=== PATIENT | female | born 1935 | race Caucasian/White ===

== ENCOUNTER 2016-12-04 16:35 | Emergency (ER) | payer MEDICARE, OTHER | END 2016-12-04 20:00 | disposition home or self-care (01) | LOC: D.ER 16:35 | DX: S01.81XA Laceration without foreign body of other part of head, initial encounter (principal); W19.XXXA Unspecified fall, initial encounter; Y93.89 Activity, other specified; Y92.512 Supermarket, store or market as the place of occurrence of the external cause ==

== ENCOUNTER 2017-11-15 16:01 | Emergency (ER) | payer MEDICARE, OTHER | END 2017-11-15 17:12 | disposition home or self-care (01) | LOC: D.ER 16:01 | DX: Z76.0 Encounter for issue of repeat prescription (principal) ==

== ENCOUNTER 2017-11-20 13:33 | Emergency (ER) | payer MEDICARE, OTHER | END 2017-11-20 15:46 | disposition home or self-care (01) | LOC: D.ER 13:33 | DX: S00.81XA Abrasion of other part of head, initial encounter (principal); W19.XXXA Unspecified fall, initial encounter; Y93.89 Activity, other specified; Y92.230 Patient room in hospital as the place of occurrence of the external cause; S00.83XA Contusion of other part of head, initial encounter; S61.412A Laceration without foreign body of left hand, initial encounter ==

== ENCOUNTER 2018-06-14 10:37 | Inpatient (IN) | payer MEDICARE ==
[~2018-06-14] VITALS: Ht 165.1 cm; Wt 41.5 kg
--- NOTE | ~2018-06-14 | MORECARE ---
CASE MANAGEMENT DISCHARGE SUMMARY PATIENT: MARLEN TOTH UNIT: [id number] ADM DATE: 06/14/18 AGE: 83 : 34 SEX: F ROOM/BED: D.1211 AUTHOR: LADAN TATE PHYSICIAN: REFERRING PHYSICIAN: CECIL BAKER MD DATE OF SERVICE: 06/14/18 Discharge Plan Patient Name: MARLEN TOTH [facility] [facility] 1935 Planned Disposition: Anticipated Discharge Date: 06/16/18 Discharge Date: Expected LOS: 2 Initial Reviewer: [email or web address] Initial Review Date: 06/14/2018 Generated: 06/14/18 3:39 pm DCPIA - Discharge Planning Initial Assessment Updated by [email or web address]: Sandrine Mahoney on 06/14/18 2:36 pm * Is the patient Alert and Oriented? Yes * How many steps to enter\exit or inside your home? * PCP [facility] * Pharmacy [facility] * Preadmission Environment Home with Family * ADLs Independent * Equipment Bedside Commode Cane Walker * List name and contact numbers for known caregivers / representatives who currently or will assist patient after discharge: TANVI TOTH, DAUGHTER, * Verbal permission to speak to the caregivers and representatives has been obtained from the patient. Yes * Community resources currently utilized Meals on Wheels * Please name any agencies selected above. STATES A CAREGIVER COMES 3 DAYS A WEEK BUT SHE DOESN'T KNOW THROUGH WHAT AGENCY. STATES WHEN DAUGHTER GETS HERE SHE WILL KNOW. * Can the patient safely return to the preadmission environment? Yes * Has this patient been hospitalized within the prior 30 days at any hospital? No Patient Name: MARLEN TOTH Page [id number] at 1439 All edits/amendments must be made on the electronic document DICTATION DATE: 06/14/181437 BUS AND TROLLEY DISPATCHER: CATHERINE 06/14/181437 RPT#: [id number] DC DATE: STATUS: ADM IN [facility] [address] [place] [address] END OF REPORT
--- NOTE | ~2018-06-14 | MORECARE ---
CASE MANAGEMENT DISCHARGE SUMMARY PATIENT: MARLEN TOTH UNIT: [id number] ADM DATE: 06/14/18 AGE: 83 : 34 SEX: F ROOM/BED: D.1211 AUTHOR: LADAN TATE PHYSICIAN: REFERRING PHYSICIAN: CECIL BAKER MD DATE OF SERVICE: 06/14/18 Discharge Plan Patient Name: MARLEN TOTH Facility: [facility]:[place] : 1935 Planned Disposition: Anticipated Discharge Date: 06/16/18 Discharge Date: Expected LOS: 2 Initial Reviewer: [email or web address] Initial Review Date: 06/14/2018 Generated: 06/14/18 3:49 pm Comments DCP- Discharge Planning Updated by [email or web address]: Sandrine Mahoney on 06/14/18 1:[address] Patient Name: MARLEN TOTH Admission Status: ER Accout number: [id number] Admission Date: 06-14-2018 : 1935 Admission Diagnosis: Attending: CECIL BAKER Current LOS: 1 Anticipated DC Date: 06-16-2018 Planned Disposition: Primary Insurance: [facility] MEDICARE SOLUTIONS Discharge Planning Comments: CM MET WITH PATIENT AND HER SON JOSH. SHE STATES HER SONS COME AND STAY WITH HER AT NIGHT AND SHE HAS A CAREGIVER THAT COMES TO HER HOUSE 3 DAYS A WEEK. SHE DOESN'T KNOW THE NAME OF THE AGENCY BUT STATES HER DAUGHTER IN LAW, TANVI, SHOULD WHEN SHE GETS HERE. STATES HOME ENVIRONMENT IS SAFE. STATES SHE WAS FINE UNTIL SHE WAS MOPPING AND WAXING HER FLOORS AND THEN SHE BECAME SICK. PATIENT IS INDEPENDANT WITH ADL'S. HAS CANE AND WALKER NEEDED. CM WILL FOLLOW AND ASSIST NEEDED WITH DC PLANNING/NEEDS. Foreign Languages Department Chair: Sandrine Mahoney DCPIA - Discharge Planning Initial Assessment Updated by [email or web address]: Sandrine Mahoney on 06/14/18 2:36 pm * Is the patient Alert and Oriented? Yes * How many steps to enter\exit or inside your home? * PCP [facility] * Pharmacy [facility] * Preadmission Environment Home with Family * ADLs Independent * Equipment Bedside Commode Cane Walker * List name and contact numbers for known caregivers / representatives who currently or will assist patient after discharge: TANVI TOTH, DAUGHTER, * Verbal permission to speak to the caregivers and representatives has been obtained from the patient. Yes * Community resources currently utilized Meals on Wheels * Please name any agencies selected above. STATES A CAREGIVER COMES 3 DAYS A WEEK BUT SHE DOESN'T KNOW THROUGH WHAT AGENCY. STATES WHEN DAUGHTER GETS HERE SHE WILL KNOW. * Can the patient safely return to the preadmission environment? Yes * Has this patient been hospitalized within the prior 30 days at any hospital? No Last DP export: 06/14/18 1:39 Patient Name: MARLEN OTTH Page [id number] at 1449 All edits/amendments must be made on the electronic document DICTATION DATE: 06/14/181448 SCRAPER HAND: CATHERINE 06/14/181448 RPT#: [id number] [place] DATE: STATUS: ADM IN [facility] [address] [place] [address] END OF REPORT
--- NOTE | ~2018-06-14 | MORECARE ---
CASE MANAGEMENT DISCHARGE SUMMARY PATIENT: MARLEN WELLINGTON UNIT: [id number] ADM DATE: 06/14/18 AGE: 83 : 34 SEX: F ROOM/BED: D.1211 AUTHOR: LADAN TATE PHYSICIAN: REFERRING PHYSICIAN: CECIL BAKER MD DATE OF SERVICE: 06/22/18 Discharge Plan Patient Name: MARLEN WELLINGTON [facility]:[place] : 1935 Planned Disposition: Anticipated Discharge Date: 06/16/18 Discharge Date: 06/22/2018 Expected LOS: 2 Initial Reviewer: [email or web address] Initial Review Date: 06/14/2018 Generated: 06/22/18 5:01 pm Comments DCP- Discharge Planning Updated by [email or web address]: Rianna Hinds on 06/22/18 2:[address] LATE ENTRY 06/22/18 @ 1040 CM called and spoke with Tanvi Wellington patients [id number] regarding discharge planning. Pat states that they plan on the patient coming back to her home. Pat states that she has 24 hr. care. She has a caregiver in the day hours and family is with her evening and night. CM called and spoke with nursing regarding plan for discharge. IMM explained and served 06/22/18 @ 1121. CM will continue to follow and assist as needed with discharge planning / needs. DCP- Discharge Planning Updated by [email or web address]: Rianna Hinds on 06/18/18 3:[address] CM WAS NOTIFIED THAT D/C PLAN FOR TODAY WAS CANCELED DUE TO MENTAL STATUS CHANGE. TORIBIO WITH INPATIENT REHAB NOTIFIED CM THAT PATIENT DIDN'T QUALIFY FOR INPATIENT REHAB. CM WILL CONTINUE TO FOLLOW AND ASSIST NEEDED WITH DISCHARGE PLANNING NEEDS. DCP- Discharge Planning Updated by [id number]: Sandrine Mahoney on 06/14/18 1:[address] Patient Name: MARLEN WELLINGTON Admission Status: ER Accout number: [id number] Admission Date: 06-14-2018 : 1935 Admission Diagnosis: Attending: CECIL BAKER Current LOS: 1 Anticipated DC Date: 06-16-2018 Planned Disposition: Primary Insurance: [facility] MEDICARE SOLUTIONS Discharge Planning Comments: CM MET WITH PATIENT AND HER SON JOSH. SHE STATES HER SONS COME AND STAY WITH HER AT NIGHT AND SHE HAS A CAREGIVER THAT COMES TO HER HOUSE 3 DAYS A WEEK. SHE DOESN'T KNOW THE NAME OF THE AGENCY BUT STATES HER DAUGHTER IN LAW, TANVI, SHOULD WHEN SHE GETS HERE. STATES HOME ENVIRONMENT IS SAFE. STATES SHE WAS FINE UNTIL SHE WAS MOPPING AND WAXING HER FLOORS AND THEN SHE BECAME SICK. PATIENT IS INDEPENDANT WITH ADL'S. HAS CANE AND WALKER NEEDED. CM WILL FOLLOW AND ASSIST NEEDED WITH DC PLANNING/NEEDS. Model Maker Plaster: Sandrine Mahoney DCPIA - Discharge Planning Initial Assessment Updated by [id number]: Sandrine Mahoney on 06/14/18 2:36 pm * Is the patient Alert and Oriented? Yes * How many steps to enter\exit or inside your home? * PCP [facility] * Pharmacy [facility] * Preadmission Environment Home with Family * ADLs Independent * Equipment Bedside Commode Cane Walker * List name and contact numbers for known caregivers / representatives who currently or will assist patient after discharge: TANVI WELLINGTON, DAUGHTER, * Verbal permission to speak to the caregivers and representatives has been obtained from the patient. Yes * Community resources currently utilized Meals on Wheels * Please name any agencies selected above. STATES A CAREGIVER COMES 3 DAYS A WEEK BUT SHE DOESN'T KNOW THROUGH WHAT AGENCY. STATES WHEN DAUGHTER GETS HERE SHE WILL KNOW. * Can the patient safely return to the preadmission environment? Yes * Has this patient been hospitalized within the prior 30 days at any hospital? No Coverage Notice Reviewer: [id number] Koko Hinds Notice Issued Date-Time: 06/22/2018 15:50 Notice Type: IM Discharge Notice Notice Delivered To: Patient Relationship to Patient: Self Lei Maker Name: Delivery Method: HAND - Hand Delivered [place] Days: Prior Verbal Notification: Recipient Understood Notice: Yes Recipient Signature: Yes Med Rec Note Co-signed by Attending: Coverage Notice Comment: Last DP export: 06/18/18 3:29 Patient Name: MARLEN WELLINGTON Page [phone] at 1601 All edits/amendments must be made on the electronic document DICTATION DATE: 06/22/18 1601 PRODUCT TEST SPECIALIST: CATHERINE 06/22/18 1601 RPT#: [id number] DC DATE:06/22/18 STATUS: DIS IN [facility] [address] [facility] [facility] [address] END OF REPORT
--- NOTE | ~2018-06-14 | MORECARE ---
CASE MANAGEMENT DISCHARGE SUMMARY PATIENT: MARLEN TOTH UNIT: [id number] ADM DATE: 06/14/18 AGE: 83 : 34 SEX: F ROOM/BED: D.1211 AUTHOR: LADAN TATE PHYSICIAN: REFERRING PHYSICIAN: CECIL BAKER MD DATE OF SERVICE: 06/18/18 Discharge Plan Patient Name: MARLEN TOTH Facility: [facility]:[place] : 1935 Planned Disposition: Anticipated Discharge Date: 06/16/18 Discharge Date: Expected LOS: 2 Initial Reviewer: [email or web address] Initial Review Date: 06/14/2018 Generated: 06/18/18 5:29 pm Comments DCP- Discharge Planning Updated by [email or web address]: Rianna Hinds on 06/18/18 3:[address] CM WAS NOTIFIED THAT D/C PLAN FOR TODAY WAS CANCELED DUE TO MENTAL STATUS CHANGE. TORIBIO WITH INPATIENT REHAB NOTIFIED CM THAT PATIENT DIDN'T QUALIFY FOR INPATIENT REHAB. CM WILL CONTINUE TO FOLLOW AND ASSIST NEEDED WITH DISCHARGE PLANNING NEEDS. DCP- Discharge Planning Updated by [id number]: Sandrine Mahoney on 06/14/18 1:[address] Patient Name: MARLEN TOTH Admission Status: ER Accout number: [id number] Admission Date: 06-14-2018 : 1935 Admission Diagnosis: Attending: CECIL BAKER Current LOS: 1 Anticipated DC Date: 06-16-2018 Planned Disposition: Primary Insurance: [facility] MEDICARE SOLUTIONS Discharge Planning Comments: CM MET WITH PATIENT AND HER SON JOSH. SHE STATES HER SONS COME AND STAY WITH HER AT NIGHT AND SHE HAS A CAREGIVER THAT COMES TO HER HOUSE 3 DAYS A WEEK. SHE DOESN'T KNOW THE NAME OF THE AGENCY BUT STATES HER DAUGHTER IN LAW, PAT, SHOULD WHEN SHE GETS HERE. STATES HOME ENVIRONMENT IS SAFE. STATES SHE WAS FINE UNTIL SHE WAS MOPPING AND WAXING HER FLOORS AND THEN SHE BECAME SICK. PATIENT IS INDEPENDANT WITH ADL'S. HAS CANE AND WALKER NEEDED. CM WILL FOLLOW AND ASSIST NEEDED WITH DC PLANNING/NEEDS. Web Designer: Sandrine Mahoney DCPIA - Discharge Planning Initial Assessment Updated by [email or web address]: Sandrine Mahoney on 06/14/18 2:36 pm * Is the patient Alert and Oriented? Yes * How many steps to enter\exit or inside your home? * PCP [facility] * Pharmacy [facility] * Preadmission Environment Home with Family * ADLs Independent * Equipment Bedside Commode Cane Walker * List name and contact numbers for known caregivers / representatives who currently or will assist patient after discharge: TANVI TOTH, DAUGHTER, * Verbal permission to speak to the caregivers and representatives has been obtained from the patient. Yes * Community resources currently utilized Meals on Wheels * Please name any agencies selected above. STATES A CAREGIVER COMES 3 DAYS A WEEK BUT SHE DOESN'T KNOW THROUGH WHAT AGENCY. STATES WHEN DAUGHTER GETS HERE SHE WILL KNOW. * Can the patient safely return to the preadmission environment? Yes * Has this patient been hospitalized within the prior 30 days at any hospital? No Last DP export: 06/14/18 1:49 Patient Name: MARLEN TOTH Page [id number] at 1630 All edits/amendments must be made on the electronic document DICTATION DATE: 06/18/181628 TILE ROOFER: CATHERINE 06/18/18 162 RPT#: [id number] DC DATE: STATUS: ADM IN [facility] [address] [place] [address] END OF REPORT
[2018-06-14 11:37] LABS: APPEARANCE CLEAR (CLEAR); BILIRUBIN NEGATIVE (NEGATIVE); COLOR YELLOW (YELLOW); GLUCOSE NEGATIVE (NEGATIVE); KETONE SMALL mg/dL (NEGATIVE); NITRITE NEGATIVE (NEGATIVE); PROTEIN 2+ mg/dL (NEGATIVE); SPECIFIC GRAVITY 1.015 (1.005-1.020); UROBILINOGEN NORMAL (NORMAL)
[2018-06-14 11:38] LABS: EPITHELIAL CELLS OCC /hpf (0-5); RED CELLS - URINE 0-5 /hpf (0-5); WHITE CELLS - URINE RARE /hpf (0-5)
[2018-06-14 11:47] LABS: BASOPHILS 0.2 % (0-2); EOSINOPHILS 0 % (0-7); HEMATOCRIT 39.6 % (36.0-48.0); HEMOGLOBIN 12.7 g/dL (12-16); IMMATURE GRANULOCYTES 0.2 % (0-5); LYMPHOCYTES 20.2 % (15-50); MCH 30.4 pg (26.0-34.0); MCHC 32.1 g/dL (31.0-37.0); MCV 94.7 fL (80.0-100.0); MEAN PLATELET VOLUME 9.1 fL (7.4-10.4); MONOCYTES 6.8 % (2-11); NEUTROPHILS 72.6 % (40-80); PLATELET COUNT 205 10x3/uL (130-400); RBC 4.18 10x6/uL (4.00-5.40); WBC 5.8 10x3/uL (4.8-10.8)
[2018-06-14 12:08] LABS: ALBUMIN 3.9 g/dL (3.4-5.0); ALKALINE PHOSPHATASE 63 U/L (46-116); ALT (SGPT) 35 U/L (10-68); BILIRUBIN - TOTAL 0.22 mg/dL (0.2-1.3); CALC OSMOLALITY 276 mosm/kg (275-300); CALCIUM 8.6 mg/dL (8.5-10.1); CARBON DIOXIDE 22.3 mmol/L (21.0-32.0); CHLORIDE - SERUM 103 mmol/L (98-107); CREATININE - SERUM 0.9 mg/dL (0.6-1.3); GLUCOSE 97 mg/dL (74-106); POTASSIUM - SERUM 3.8 mmol/L (3.5-5.1); PROTEIN - SERUM 8.2 g/dL (6.4-8.2); SODIUM 138 mmol/L (136-145); UREA NITROGEN 15 mg/dL (7-18); eGFR NON AFRICAN AMERICAN 63 mL/min (90-120)
[2018-06-14 12:18] LABS: AMYLASE - SERUM 59 U/L (25-115); CKMB 1.9 U/L (0.0-3.6); CREATINE KINASE 236 UL (21-215); LIPASE 157 U/L (73-393)
[2018-06-14 12:21] LABS: TROPONIN-I < 0.017 ng/mL (0.000-0.060)
[2018-06-14 14:50] VITALS: BP 138/69; BMI 14.5
[2018-06-14 17:59] VITALS: BP 141/61
[2018-06-14 19:40] VITALS: BP 134/72
[2018-06-15 00:54] VITALS: BP 138/69
[2018-06-15 04:55] VITALS: BP 142/66
[2018-06-15 06:04] LABS: BASOPHILS 0 % (0-2); EOSINOPHILS 0.7 % (0-7); HEMOGLOBIN 11.6 g/dL (12-16); IMMATURE GRANULOCYTES 0.1 % (0-5); LYMPHOCYTES 7.6 % (15-50); MCH 30.1 pg (26.0-34.0); MCHC 32.2 g/dL (31.0-37.0); MCV 93.5 fL (80.0-100.0); MEAN PLATELET VOLUME 9.1 fL (7.4-10.4); MONOCYTES 3.2 % (2-11); NEUTROPHILS 88.4 % (40-80); PLATELET COUNT 183 10x3/uL (130-400); RBC 3.85 10x6/uL (4.00-5.40); RDW 13.2 % (11.5-14.5); WBC 7.1 10x3/uL (4.8-10.8)
[2018-06-15 06:24] LABS: ALBUMIN 3.1 g/dL (3.4-5.0); ANION GAP 17.4 mmol/L (8-16); BILIRUBIN - TOTAL 0.27 mg/dL (0.2-1.3); CARBON DIOXIDE 18.9 mmol/L (21.0-32.0); CREATININE - SERUM 0.9 mg/dL (0.6-1.3); POTASSIUM - SERUM 3.3 mmol/L (3.5-5.1); PROTEIN - SERUM 6.8 g/dL (6.4-8.2)
[2018-06-15 07:40] VITALS: BP 143/63
[2018-06-15 11:07] VITALS: BP 144/71
[2018-06-15 14:04] VITALS: Ht 165.1 cm; Wt 41.5 kg
[2018-06-15 15:24] VITALS: BP 152/68
[2018-06-15 19:15] VITALS: BP 134/59
[2018-06-16] VITALS: BP 135/69
[2018-06-16 03:00] VITALS: BP 128/63
[2018-06-16 06:01] LABS: BASOPHILS 0.1 % (0-2); HEMATOCRIT 38.8 % (36.0-48.0); HEMOGLOBIN 12.8 g/dL (12-16); IMMATURE GRANULOCYTES 0.5 % (0-5); LYMPHOCYTES 3.8 % (15-50); MCH 30.1 pg (26.0-34.0); MEAN PLATELET VOLUME 9.2 fL (7.4-10.4); MONOCYTES 2.9 % (2-11); NEUTROPHILS 90.7 % (40-80); PLATELET COUNT 166 10x3/uL (130-400); RBC 4.25 10x6/uL (4.00-5.40); RDW 13.1 % (11.5-14.5)
[2018-06-16 06:36] LABS: ALBUMIN 3.4 g/dL (3.4-5.0); ANION GAP 17.6 mmol/L (8-16); BILIRUBIN - TOTAL 0.3 mg/dL (0.2-1.3); CALCIUM 8.4 mg/dL (8.5-10.1); CARBON DIOXIDE 19.9 mmol/L (21.0-32.0); CREATININE - SERUM 0.8 mg/dL (0.6-1.3); PROTEIN - SERUM 7.2 g/dL (6.4-8.2)
[2018-06-16 06:40] LABS: POTASSIUM - SERUM 2.5 mmol/L (3.5-5.1)
[2018-06-16 06:47] LABS: MCV 91.3 fL (80.0-100.0); WBC 9.8 10x3/uL (4.8-10.8)
[2018-06-16 08:18] VITALS: BP 147/69
[2018-06-16 11:39] VITALS: BP 140/71
[2018-06-16 17:06] VITALS: BP 117/73
[2018-06-16 19:59] VITALS: BP 132/66
[2018-06-17 00:26] VITALS: BP 124/64
[2018-06-17 04:25] VITALS: BP 136/64
[2018-06-17 06:57] LABS: BASOPHILS 0.3 % (0-2); EOSINOPHILS 3.6 % (0-7); HEMATOCRIT 37.3 % (36.0-48.0); HEMOGLOBIN 12.5 g/dL (12-16); IMMATURE GRANULOCYTES 0.4 % (0-5); LYMPHOCYTES 5.9 % (15-50); MCHC 33.5 g/dL (31.0-37.0); MCV 89.7 fL (80.0-100.0); MEAN PLATELET VOLUME 9.7 fL (7.4-10.4); MONOCYTES 3.9 % (2-11); NEUTROPHILS 85.9 % (40-80); PLATELET COUNT 155 10x3/uL (130-400); RBC 4.16 10x6/uL (4.00-5.40); RDW 13.3 % (11.5-14.5); WBC 10.9 10x3/uL (4.8-10.8)
[2018-06-17 07:19] LABS: ALKALINE PHOSPHATASE 49 U/L (46-116); BILIRUBIN - TOTAL 0.26 mg/dL (0.2-1.3); CALC OSMOLALITY 269 mosm/kg (275-300); CALCIUM 8.2 mg/dL (8.5-10.1); CARBON DIOXIDE 17.6 mmol/L (21.0-32.0); CHLORIDE - SERUM 103 mmol/L (98-107); CREATININE - SERUM 0.7 mg/dL (0.6-1.3); GLUCOSE 101 mg/dL (74-106); PROTEIN - SERUM 6.6 g/dL (6.4-8.2); SODIUM 136 mmol/L (136-145); UREA NITROGEN 7 mg/dL (7-18); eGFR NON AFRICAN AMERICAN 84 mL/min (90-120)
[2018-06-17 07:22] LABS: ALT (SGPT) 15 U/L (10-68)
[2018-06-17 07:30] VITALS: BP 141/67
[2018-06-17 11:08] VITALS: BP 129/69
[2018-06-17 15:39] VITALS: BP 143/71
[2018-06-17 20:05] VITALS: BP 150/64
[2018-06-18 05:21] LABS: BASOPHILS 0.9 % (0-2); EOSINOPHILS 4.8 % (0-7); HEMATOCRIT 36.1 % (36.0-48.0); HEMOGLOBIN 12.1 g/dL (12-16); IMMATURE GRANULOCYTES 0.4 % (0-5); LYMPHOCYTES 8.2 % (15-50); MCH 30.2 pg (26.0-34.0); MCHC 33.5 g/dL (31.0-37.0); MEAN PLATELET VOLUME 9.3 fL (7.4-10.4); MONOCYTES 4.8 % (2-11); NEUTROPHILS 80.9 % (40-80); PLATELET COUNT 143 10x3/uL (130-400); RBC 4.01 10x6/uL (4.00-5.40); RDW 13.4 % (11.5-14.5); WBC 11.8 10x3/uL (4.8-10.8)
[2018-06-18 05:49] LABS: ALBUMIN 3.1 g/dL (3.4-5.0); ALKALINE PHOSPHATASE 49 U/L (46-116); BILIRUBIN - TOTAL 0.31 mg/dL (0.2-1.3); CALC OSMOLALITY 266 mosm/kg (275-300); CARBON DIOXIDE 17.2 mmol/L (21.0-32.0); CHLORIDE - SERUM 101 mmol/L (98-107); CREATININE - SERUM 0.6 mg/dL (0.6-1.3); GLUCOSE 84 mg/dL (74-106); POTASSIUM - SERUM 3.7 mmol/L (3.5-5.1); PROTEIN - SERUM 6.2 g/dL (6.4-8.2); SODIUM 135 mmol/L (136-145); UREA NITROGEN 7 mg/dL (7-18); eGFR NON AFRICAN AMERICAN > 90 mL/min (90-120)
[2018-06-18 05:53] LABS: ALT (SGPT) 24 U/L (10-68)
[2018-06-18 05:59] VITALS: BP 155/71
[2018-06-18 08:10] VITALS: BP 115/67
[2018-06-18] MEDS ORDERED: FLAGYL500 MG PO (11:18)
[2018-06-18] MEDS ORDERED: FLORAJEN3 CAPS460 MG PO (11:19)
[2018-06-18 12:00] VITALS: BP 132/72
[2018-06-18 16:00] VITALS: BP 145/75
[2018-06-19 00:39] VITALS: BP 138/72
[2018-06-19 06:30] VITALS: BP 115/64
[2018-06-19 06:44] LABS: BASOPHILS 0.4 % (0-2); EOSINOPHILS 4.6 % (0-7); HEMATOCRIT 33.7 % (36.0-48.0); HEMOGLOBIN 11.5 g/dL (12-16); IMMATURE GRANULOCYTES 0.5 % (0-5); LYMPHOCYTES 11.8 % (15-50); MCH 29.9 pg (26.0-34.0); MCHC 34.1 g/dL (31.0-37.0); MEAN PLATELET VOLUME 9.6 fL (7.4-10.4); MONOCYTES 4.3 % (2-11); NEUTROPHILS 78.4 % (40-80); RBC 3.85 10x6/uL (4.00-5.40); RDW 13.3 % (11.5-14.5); WBC 14.3 10x3/uL (4.8-10.8)
[2018-06-19 06:47] LABS: MCV 87.5 fL (80.0-100.0); PLATELET COUNT 188 10x3/uL (130-400)
[2018-06-19 07:15] LABS: ALBUMIN 2.9 g/dL (3.4-5.0); ALKALINE PHOSPHATASE 46 U/L (46-116); ALT (SGPT) 18 U/L (10-68); BILIRUBIN - TOTAL 0.36 mg/dL (0.2-1.3); CALC OSMOLALITY 262 mosm/kg (275-300); CALCIUM 7.8 mg/dL (8.5-10.1); CHLORIDE - SERUM 98 mmol/L (98-107); CREATININE - SERUM 0.7 mg/dL (0.6-1.3); GLUCOSE 92 mg/dL (74-106); PROTEIN - SERUM 6.3 g/dL (6.4-8.2); SODIUM 132 mmol/L (136-145); UREA NITROGEN 8 mg/dL (7-18); eGFR NON AFRICAN AMERICAN 84 mL/min (90-120)
[2018-06-19 07:30] LABS: POTASSIUM - SERUM 2.6 mmol/L (3.5-5.1)
[2018-06-19 09:16] VITALS: BP 142/65
[2018-06-19 12:13] VITALS: BP 131/67
[2018-06-19 16:29] VITALS: BP 134/77
[2018-06-19 21:00] VITALS: BP 143/79
[2018-06-20 04:40] VITALS: BP 148/81
[2018-06-20 06:40] LABS: BASOPHILS 0.6 % (0-2); EOSINOPHILS 4.8 % (0-7); HEMATOCRIT 36.8 % (36.0-48.0); HEMOGLOBIN 12.6 g/dL (12-16); IMMATURE GRANULOCYTES 0.6 % (0-5); LYMPHOCYTES 23.4 % (15-50); MCHC 34.2 g/dL (31.0-37.0); MCV 87.6 fL (80.0-100.0); MEAN PLATELET VOLUME 9.5 fL (7.4-10.4); MONOCYTES 6.7 % (2-11); NEUTROPHILS 63.9 % (40-80); RDW 13.3 % (11.5-14.5); WBC 12.7 10x3/uL (4.8-10.8)
[2018-06-20 06:42] LABS: PLATELET COUNT 229 10x3/uL (130-400)
[2018-06-20 07:06] LABS: ALBUMIN 3.1 g/dL (3.4-5.0); ALKALINE PHOSPHATASE 49 U/L (46-116); ALT (SGPT) 18 U/L (10-68); BILIRUBIN - TOTAL 0.44 mg/dL (0.2-1.3); CALC OSMOLALITY 265 mosm/kg (275-300); CALCIUM 8.3 mg/dL (8.5-10.1); CARBON DIOXIDE 17.9 mmol/L (21.0-32.0); CHLORIDE - SERUM 100 mmol/L (98-107); CREATININE - SERUM 0.7 mg/dL (0.6-1.3); GLUCOSE 81 mg/dL (74-106); POTASSIUM - SERUM 3.3 mmol/L (3.5-5.1); PROTEIN - SERUM 6.9 g/dL (6.4-8.2); SODIUM 134 mmol/L (136-145); UREA NITROGEN 10 mg/dL (7-18); eGFR NON AFRICAN AMERICAN 84 mL/min (90-120)
[2018-06-20 08:00] VITALS: BP 114/66
[2018-06-20 08:58] LABS: APPEARANCE CLEAR (CLEAR); BILIRUBIN NEGATIVE (NEGATIVE); COLOR STRAW (YELLOW); GLUCOSE NEGATIVE (NEGATIVE); KETONE LARGE mg/dL (NEGATIVE); NITRITE NEGATIVE (NEGATIVE); PROTEIN TRACE mg/dL (NEGATIVE); SPECIFIC GRAVITY 1.015 (1.005-1.020); UROBILINOGEN NORMAL (NORMAL); WHITE CELLS - URINE OCC /hpf (0-5)
[2018-06-20 08:59] LABS: AMORPHOUS SEDIMENT <1+ /lpf (NONE SEEN); EPITHELIAL CELLS OCC /hpf (0-5); MUCUS <1+ /lpf (NONE SEEN); RED CELLS - URINE OCC /hpf (0-5)
[2018-06-20 12:03] VITALS: BP 119/72
[2018-06-20 16:00] VITALS: BP 115/70
[2018-06-20 19:50] VITALS: BP 128/73
[2018-06-20 23:30] VITALS: BP 123/71
[2018-06-21 03:55] VITALS: BP 120/30
[2018-06-21 05:11] LABS: BASOPHILS 0.4 % (0-2); EOSINOPHILS 3.7 % (0-7); HEMATOCRIT 37.7 % (36.0-48.0); HEMOGLOBIN 12.8 g/dL (12-16); IMMATURE GRANULOCYTES 0.6 % (0-5); LYMPHOCYTES 25.6 % (15-50); MCH 29.6 pg (26.0-34.0); MCV 87.1 fL (80.0-100.0); MONOCYTES 7.7 % (2-11); PLATELET COUNT 273 10x3/uL (130-400); RBC 4.33 10x6/uL (4.00-5.40); RDW 13.3 % (11.5-14.5)
[2018-06-21 05:16] LABS: WBC 8.2 10x3/uL (4.8-10.8)
[2018-06-21 05:29] LABS: ALBUMIN 3.2 g/dL (3.4-5.0); ALKALINE PHOSPHATASE 46 U/L (46-116); BILIRUBIN - TOTAL 0.52 mg/dL (0.2-1.3); CALC OSMOLALITY 269 mosm/kg (275-300); CALCIUM 8.3 mg/dL (8.5-10.1); CHLORIDE - SERUM 100 mmol/L (98-107); CREATININE - SERUM 0.7 mg/dL (0.6-1.3); GLUCOSE 87 mg/dL (74-106); POTASSIUM - SERUM 3.5 mmol/L (3.5-5.1); PROTEIN - SERUM 7.3 g/dL (6.4-8.2); SODIUM 136 mmol/L (136-145); UREA NITROGEN 10 mg/dL (7-18); eGFR NON AFRICAN AMERICAN 84 mL/min (90-120)
[2018-06-21 05:30] LABS: ALT (SGPT) 25 U/L (10-68); CARBON DIOXIDE 23.1 mmol/L (21.0-32.0)
[2018-06-21 19:00] VITALS: BP 112/67
[2018-06-22 00:45] VITALS: BP 115/78
[2018-06-22 05:31] LABS: BASOPHILS 0.3 % (0-2); EOSINOPHILS 3.9 % (0-7); HEMATOCRIT 36.6 % (36.0-48.0); HEMOGLOBIN 12.6 g/dL (12-16); IMMATURE GRANULOCYTES 0.5 % (0-5); LYMPHOCYTES 26.1 % (15-50); MCH 29.9 pg (26.0-34.0); MCHC 34.4 g/dL (31.0-37.0); MCV 86.9 fL (80.0-100.0); MEAN PLATELET VOLUME 8.7 fL (7.4-10.4); MONOCYTES 9.6 % (2-11); NEUTROPHILS 59.6 % (40-80); PLATELET COUNT 290 10x3/uL (130-400); RBC 4.21 10x6/uL (4.00-5.40); RDW 13.3 % (11.5-14.5); WBC 7.7 10x3/uL (4.8-10.8)
[2018-06-22 05:58] LABS: ALBUMIN 3.2 g/dL (3.4-5.0); ALKALINE PHOSPHATASE 51 U/L (46-116); ALT (SGPT) 24 U/L (10-68); BILIRUBIN - TOTAL 0.45 mg/dL (0.2-1.3); CALC OSMOLALITY 271 mosm/kg (275-300); CALCIUM 8.5 mg/dL (8.5-10.1); CARBON DIOXIDE 25.8 mmol/L (21.0-32.0); CHLORIDE - SERUM 100 mmol/L (98-107); CREATININE - SERUM 0.6 mg/dL (0.6-1.3); GLUCOSE 109 mg/dL (74-106); POTASSIUM - SERUM 3.3 mmol/L (3.5-5.1); PROTEIN - SERUM 7.1 g/dL (6.4-8.2); SODIUM 136 mmol/L (136-145); UREA NITROGEN 9 mg/dL (7-18); eGFR NON AFRICAN AMERICAN > 90 mL/min (90-120)
[2018-06-22 06:14] VITALS: BP 137/76
[2018-06-22 07:01] VITALS: BP 136/71
[2018-06-22 11:00] VITALS: BP 110/69
== END 2018-06-22 13:40 | disposition home or self-care (01) | DRG 391 ==
LOC: D.ER 10:37 → D.EDHOLD 13:33 → D.M3 13:33
PROVIDERS: Emergency Medicine; Family Medicine; Internal Medicine Nephrology
DX: A09 Infectious gastroenteritis and colitis, unspecified (principal); E43 Unspecified severe protein-calorie malnutrition; Z68.1 Body mass index [BMI] 19.9 or less, adult; G30.9 Alzheimer's disease, unspecified; F02.80 Dementia in other diseases classified elsewhere, unspecified severity, without behavioral disturbance, psychotic disturbance, mood disturbance, and anxiety; E87.6 Hypokalemia; R53.1 Weakness